=== PATIENT | female | born 1995 | race Caucasian/White ===

== ENCOUNTER 2018-03-15 23:38 | Emergency (ER) | payer OTHER ==
[~2018-03-15] VITALS: Ht 157.5 cm; Wt 43.1 kg
[~2018-03-15 23:38] MED LIST: ALBU0.63 NEB; ALBU8.5H5 IH; AMOX500C PO; CETI10CA PO; CETI10TA24 PO; FEXO180T72 PO; FLUT9.9S NS; MONT10TA6 PO; PREN1TAB59 PO; PSEU30TA PO; SERT25TA PO; SULF1TAB24 PO; TRAM50TA PO
[2018-03-15 23:41] VITALS: BP 129/68
[2018-03-16] MEDS ORDERED: BUDE10.2 IH (00:07)
[2018-03-16] MEDS ORDERED: BUPR150T17 PO (00:08)
--- NOTE | 2018-03-16 00:12 | ER.PDOC ---
General Chief Complaint: Trunk Pain/Injury Stated Complaint: L SIDE RIB & COLLAR BONE PAIN Time seen by MD: 23:55 Source: patient Exam Limitations: no limitations History of Present Illness Initial Comments Pain on left clavicular area for about two hours, no trauma, no exercise Timing/Duration: 1-3 hours Severity/Quality: moderate, sharp Radiation: no radiation Activities at Onset: none Prior CP/Workup: No Prior Chest Pain Allergies: Coded Allergies: Egg Derived (Verified Allergy, Intermediate, Rash, 07/11/14) ciprofloxacin (Verified Allergy, Intermediate, Rash, 07/11/14) Cephalosporins (Verified Allergy, Mild, RASH, 05/23/15) Influenza Virus Vaccines (Verified Allergy, Unknown, PT ALLERGIC TO EGGS, 04/27/15) sulfamethoxazole (Verified Allergy, Unknown, F, 05/23/15) trimethoprim (Verified Allergy, Unknown, F, 05/23/15) Home Meds Reported Medications Bupropion Hcl (WELLBUTRIN XL) 150 Mg Tab.er.24h, 1 TAB PO DAILY, #30 TAB 03/16/18 Budesonide/Formoterol Fumarate (SYMBICORT 160-4.5 MCG INHALER) 10.2 Gm Hfa.aer.ad, 1 PUFF IH HS, #10.6 GRAM 3 Refills 03/16/18 Cetirizine Hcl (ZYRTEC) 10 Mg Capsule, 0 PO DAILY, CAPSULE 01/24/17 Montelukast Sodium (SINGULAIR) 10 Mg Tablet, 10 MG PO HS, TABLET 04/27/15 Albuterol Sulfate (ALBUTEROL SULFATE HFA) 8.5 Gm Hfa.aer.ad, 8.5 GM IH PRN PRN for SHORTNESS OF BREATH 07/11/14 Discontinued Reported Medications Vits W-Ca,Fe,Fa(<1MG) ( VITAMINS) 1 Each Tablet, 1 TAB PO DAILY , #90 TAB 3 Refills 01/24/17 Sertraline Hcl (ZOLOFT) 25 Mg Tablet, 1 TAB PO DAILY, #30 TAB 2 Refills 01/24/17 Albuterol Sulfate (ALBUTEROL SULFATE) 0.63 Mg/3 Ml Vial.neb, 1 VIAL NEB HS PRN for SHORTNESS OF BREATH, #150 MILLILITER 1 Refill 07/11/14 Discontinued Scripts Tramadol Hcl (TRAMADOL HCL) 50 Mg Tablet, 50 MG PO Q6 PRN for PAIN for AD Days, TABLET Prov:ZAIRA RUTH MD 04/29/15 Past Medical History Medical History: asthma, cardiac problems, other Surgical History: , other LMP (females 10-50): last week Social History Smoking: non-smoker Alcohol Use: none Drug Use: none Constitutional: no symptoms reported EENTM: no symptoms reported Respiratory: no symptoms reported Cardiovascular: no symptoms reported Gastrointestinal: no symptoms reported Genitourinary: no symptoms reported Musculoskeletal: see HPI Skin: no symptoms reported Psychiatric/Neurological: no symptoms reported Endocrine: no symptoms reported Hematologic/Lymphatic: no symptoms reported Physical Exam General Appearance: No Apparent Distress, WD/WN HEENT: PERRL/EOMI, Normal ENT Inspection, TMs Normal, Pharynx Normal Neck: Non-Tender, Full Range of Motion, Supple, Normal Inspection Respiratory: chest non-tender, lungs clear, normal breath sounds, no respiratory distress, no accessory muscle use Cardiovascular: Normal Peripheral Pulses, Regular Rate, Rhythm, No Edema, No Gallop, No JVD, No Murmur Gastrointestinal: Normal Bowel Sounds, No Organomegaly, No Pulsatile Mass, Non Tender, Soft Extremities: Normal Range of Motion, Non-Tender, Normal Inspection, No Pedal Edema, No Calf Tenderness, Normal Capillary Refill Neurologic/Psychiatric: 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
--- NOTE | 2018-03-16 00:17 | DIREP ---
PROCEDURE:CHEST 1 VIEW COMPARISON:[facility], CR, XRAY CHEST SINGLE VW, 07/11/2014, 10:43 AM. INDICATIONS:pain on left superior hemithorax FINDINGS: LUNGS/PLEURA:No significant pulmonary parenchymal abnormalities. No effusions. VASCULATURE:Normal. Unremarkable pulmonary vasculature. CARDIAC:Normal. No cardiac silhouette abnormality or cardiomegaly. MEDIASTINUM:Normal. No visible mass or adenopathy. BONES:Normal. No fracture or visible bony lesion. OTHER:EKG leads overlie the chest. CONCLUSION:No active cardiopulmonary disease process. Dictated by: Delroy Kasper M.D. on 03/16/2018 at 00:15 AM
[2018-03-16 00:30] VITALS: BP 103/59
[2018-03-16 00:46] VITALS: BP 103/59
== END 2018-03-16 00:40 | disposition home or self-care (01) ==
LOC: ER 23:38
DX: S23.3XXA Sprain of ligaments of thoracic spine, initial encounter (principal); R07.81 Pleurodynia; J45.909 Unspecified asthma, uncomplicated; Z88.1 Allergy status to other antibiotic agents; Z88.2 Allergy status to sulfonamides; Z88.7 Allergy status to serum and vaccine; Z91.018 Allergy to other foods; Z79.899 Other long term (current) drug therapy; X58.XXXA Exposure to other specified factors, initial encounter; Y93.89 Activity, other specified; Y92.89 Other specified places as the place of occurrence of the external cause; Y99.8 Other external cause status
CPT/HCPCS: 71045; 99283

== ENCOUNTER → 2019-01-20 | Outpatient (CLI) | payer OTHER ==
[~2019-01-20] MED LIST changes: +BUDE10.2 IH; +BUPR150T17 PO
[2019-01-20 16:58] LABS: BASOPHIL % 0.4 % (0.0-0.2); EOSINOPHIL # 0.3 10^3/uL (0.0-0.2); EOSINOPHIL % 6.3 % (0.0-5.0); HEMOGLOBIN 13.3 g/dL (12.0-15.0); LYMPHOCYTES # 2.4 10^3/uL (1.0-4.8); LYMPHOCYTES % 47.4 % (24.0-44.0); MEAN CELL HGB 26.8 pg (26-34); MEAN CELL HGB CONCENTRATION 31.9 g/dL (33-37); MEAN CORP VOLUME 83.9 fL (78-100); MEAN PLATELET VOLUME 10.7 fL (7.8-11.0); MONOCYTES # 0.6 10^3/uL (0.3-0.8); MONOCYTES % 10.8 % (5.0-12.0); NEUTROPHIL # 1.8 10^3/uL (1.8-7.7); NEUTROPHILS % 35.1 % (41.0-85.0); RED CELL DISTRIBUTION WIDTH 13.8 % (11.5-14.5); WHITE BLOOD CELL 5.1 10^3/uL (4.5-11.0)
[2019-01-20 17:33] LABS: BILIRUBIN,URINE NEGATIVE (NEGATIVE); UROBILINOGEN,URINE NORMAL (NEGATIVE)
[2019-01-20 17:39] LABS: CALCIUM 9.5 mg/dL (8.4-10.5); CARBON DIOXIDE 26.9 mmol/L (20.0-32)
[2019-01-20 17:45] LABS: APPEARANCE,URINE CLOUDY (CLEAR); UA COLOR YELLOW (YELLOW)
[2019-01-22 08:14] LABS: FOLLICLE STIMULATING HORMONE 8.7 mIU/mL (.)
== END | disposition home or self-care (01) ==
LOC: LAB 16:21
PROVIDERS: ATTEND Nurse Practitioner Family
DX: R10.30 Lower abdominal pain, unspecified (principal); K90.9 Intestinal malabsorption, unspecified; R63.4 Abnormal weight loss
CPT/HCPCS: 36415; 80053; 81000; 82306; 82607; 82746; 83001; 83002; 83550; 84403; 84439; 84443; 85025; 86677; 87086

== ENCOUNTER 2019-05-18 10:10 | Emergency (ER) | payer OTHER ==
[~2019-05-18] VITALS: Ht 157.5 cm; Wt 41.3 kg
[~2019-05-18 10:10] MED LIST changes: -CETI10TA24 PO; +CETI10TA26 PO
[2019-05-18 10:22] VITALS: BP 99/66
[2019-05-18 10:50] VITALS: BP 99/66
--- NOTE | 2019-05-18 11:32 | ER.PDOC ---
General Chief Complaint: Sore Throat Stated Complaint: EAR ACHE, SORE THROAT TRAVEL OUT OF US: No Time seen by MD: 11:00 Source: patient Exam Limitations: no limitations History of Present Illness Initial Comments General body aches and not feeling well. She states she has just been very sleepy and no energy. Some nasal congestion. Timing/Duration: constant Severity: mild Allergies: Coded Allergies: Egg Derived (Verified Allergy, Intermediate, Rash, 07/11/14) ciprofloxacin (Verified Allergy, Intermediate, Rash, 07/11/14) Cephalosporins (Verified Allergy, Mild, RASH, 05/23/15) Influenza Virus Vaccines (Verified Allergy, Unknown, PT ALLERGIC TO EGGS, 04/27/15) sulfamethoxazole (Verified Allergy, Unknown, F, 05/23/15) trimethoprim (Verified Allergy, Unknown, F, 05/23/15) Home Meds Reported Medications Bupropion Hcl (WELLBUTRIN XL) 150 Mg Tab.er.24h, 1 TAB PO DAILY, #30 TAB 03/16/18 Budesonide/Formoterol Fumarate (SYMBICORT 160-4.5 MCG INHALER) 10.2 Gm Hfa.aer.ad, 1 PUFF IH HS, #10.6 GRAM 3 Refills 03/16/18 Cetirizine Hcl (ZYRTEC) 10 Mg Capsule, 0 PO DAILY, CAPSULE 01/24/17 Montelukast Sodium (SINGULAIR) 10 Mg Tablet, 10 MG PO HS, TABLET 04/27/15 Albuterol Sulfate (ALBUTEROL SULFATE HFA) 8.5 Gm Hfa.aer.ad, 8.5 GM IH PRN PRN for SHORTNESS OF BREATH 07/11/14 Past Medical History Medical History: no pertinent history Surgical History: Social History Alcohol Use: none Drug Use: none Review of Systems Constitutional: malaise EENTM: no symptoms reported Respiratory: cough Cardiovascular: no symptoms reported Gastrointestinal: no symptoms reported Genitourinary: no symptoms reported Musculoskeletal: no symptoms reported Skin: no symptoms reported Psychiatric/Neurological: no symptoms reported Hematologic/Lymphatic: no symptoms reported Immunological/Allergic: no symptoms reported All Other Systems: Reviewed and Negative Physical Exam General Appearance: No Apparent Distress, WD/WN EENT: eyes nml inspection, nml ENT inspection, pharynx nml Neck: Non-Tender, Full Range of Motion Respiratory: chest non-tender, lungs clear, normal breath sounds, no respiratory distress, no accessory muscle use CVS: reg rate & rhythm, no murmur, nml capillary refill Gastrointestinal: Normal Bowel Sounds, Non Tender Back: No CVA Tenderness Extremities: Normal Range of Motion Skin: Normal Color, Warm/Dry Lymphatic: No Adenopathy Results/Orders Results/Orders Orders - [facility] Strep Screen (05/18/19 10:41) Influenza A&B (05/18/19 10:41) Monotest (05/18/19 11:20) Cbc With Auto Diff (05/18/19 11:20) Vital Signs Date Time Temp Pulse Resp B/P (MAP) Pulse Ox O2 Delivery O2 Flow Rate FiO2 05/18/19 11:42 10/68 (49) 05/18/19 10:50 98.0 81 18 99/66 (77) 99 Room Air 05/18/19 10:50 98.0 81 18 05/18/19 10:22 98.0 81 18 99 Laboratory Tests Test 05/18/19 10:50 05/18/19 11:29 Influenza Type A Antigen NEGATIVE (NEG) Influenza B Immunofluorescence NEGATIVE (NEG) Group A Streptococcus Screen NEGATIVE (NEGATIVE) White Blood Count 3.6 10^3/uL (4.5-11.0) L Red Blood Count 4.47 10^6/uL (4.00-5.20) Hemoglobin 12.8 g/dL (12.0-15.0) Hematocrit 39.3 % (36.0-46.0) Mean Corpuscular Volume 87.9 fL (78-100) Mean Corpuscular Hemoglobin 28.6 pg (26-34) Mean Corpuscular Hemoglobin Concent 32.6 g/dL (33-36.5) L Red Cell Distribution Width 13.0 % (11.5-14.5) Platelet Count 210 10^3/uL (150-400) Mean Platelet Volume 10.1 fL (7.8-11.0) Neutrophils (%) (Auto) 36.5 % (41.0-85.0) L Lymphocytes (%) (Auto) 46.9 % (24.0-44.0) H Monocytes (%) (Auto) 11.5 % (5.0-12.0) Neutrophils # (Auto) 1.3 10^3/uL (1.8-7.7) L Lymphocytes # (Auto) 1.67 10^3/uL1 (1.0-4.8) Monocytes # (Auto) 0.4 10^3/uL (0.3-0.8) Absolute Immature Granulocyte (auto 0 10^3 u/L (0-2) Absolute Eosinophils (auto) 0.2 10^3/uL (0.0-0.2) Immature Granulocytes % 0.00 % (0.00-0.50) Eosinophils % 4.5 % (0.0-5.0) Basophils % 0.6 % (0.0-0.2) H Basophils # 0.0 10^3/uL (0.0-0.1) Course Duration or Total Time Spent w: 20 Vitals & review Data Vital Sign - Last 24 Hours 05/18/19 05/18/19 05/18/19 05/18/19 10:22 10:50 10:50 11:42 Temp 98.0 98.0 98.0 Pulse 81 81 81 Resp 18 18 18 B/P (MAP) 99/66 (77) 10/68 (49) Pulse Ox 99 99 O2 Delivery Room Air Laboratory Tests Test 05/18/19 10:50 05/18/19 11:29 Influenza Type A Antigen NEGATIVE Influenza B Immunofluorescence NEGATIVE Group A Streptococcus Screen NEGATIVE White Blood Count 3.6 10^3/uL Red Blood Count 4.47 10^6/uL Hemoglobin 12.8 g/dL Hematocrit 39.3 % Mean Corpuscular Volume 87.9 fL Mean Corpuscular Hemoglobin 28.6 pg Mean Corpuscular Hemoglobin Concent 32.6 g/dL Red Cell Distribution Width 13.0 % Platelet Count 210 10^3/uL Mean Platelet Volume 10.1 fL Neutrophils (%) (Auto) 36.5 % Lymphocytes (%) (Auto) 46.9 % Monocytes (%) (Auto) 11.5 % Neutrophils # (Auto) 1.3 10^3/uL Lymphocytes # (Auto) 1.67 10^3/uL1 Monocytes # (Auto) 0.4 10^3/uL Absolute Immature Granulocyte (auto 0 10^3 u/L Absolute Eosinophils (auto) 0.2 10^3/uL Immature Granulocytes % 0.00 % Eosinophils % 4.5 % Basophils % 0.6 % Basophils # 0.0 10^3/uL O2 Sat by Pulse Oximetry: 99 Departure Time of Disposition: 11:44 Disposition: 01 HOME, SELF-CARE Impression: Primary Impression: Influenza-like illness Condition: Stable Patient Instructions: Upper Respiratory Infection, Adult, [id number] Referrals: JOYCE [facility]IROGA [facility] (PCP) PRIMARY CARE PROVIDER Additional Instructions: Continue to alternate Tylenol and Motrin for fever and pain Follow up with your Primary Care Provider in the next 1-2 days If symptoms become worse return to the ER Duration or Time Spent with Pa: 20 min SAUL [facility] May 18, 2019 11:32
[2019-05-18 11:37] LABS: BASOPHIL % 0.6 % (0.0-0.2); EOSINOPHIL # 0.2 10^3/uL (0.0-0.2); EOSINOPHIL % 4.5 % (0.0-5.0); LYMPHOCYTES # 1.67 10^3/uL1 (1.0-4.8); LYMPHOCYTES % 46.9 % (24.0-44.0); MEAN CORP HGB 28.6 pg (26-34); MONOCYTES # 0.4 10^3/uL (0.3-0.8); MONOCYTES % 11.5 % (5.0-12.0); NEUTROPHIL # 1.3 10^3/uL (1.8-7.7); NEUTROPHILS % 36.5 % (41.0-85.0); PLATELET COUNT 210 10^3/uL (150-400)
[2019-05-18 11:42] VITALS: BP 10/68
== END 2019-05-18 11:50 | disposition home or self-care (01) ==
LOC: ER 10:10
DX: J11.1 Influenza due to unidentified influenza virus with other respiratory manifestations (principal); Z79.899 Other long term (current) drug therapy; Z88.1 Allergy status to other antibiotic agents; Z88.2 Allergy status to sulfonamides
CPT/HCPCS: 36415; 85025; 86308; 87070; 87804; 87880; 99283

== ENCOUNTER → 2019-10-21 | Outpatient (CLI) | payer OTHER, SELFPAY | END | disposition home or self-care (01) | LOC: NPLAB 14:34 | PROVIDERS: ATTEND Nurse Practitioner Adult Health | DX: N39.0 Urinary tract infection, site not specified (principal) | CPT/HCPCS: 87077; 87086; 87186 ==

== ENCOUNTER → 2019-11-27 | Outpatient (CLI) | payer OTHER ==
[~2019-11-27] MED LIST changes: -CETI10TA26 PO; +CETI10TA77 PO
== END | disposition home or self-care (01) ==
LOC: NPLAB 15:30
PROVIDERS: ATTEND Internal Medicine
DX: N39.0 Urinary tract infection, site not specified (principal)
CPT/HCPCS: 87077; 87086; 87186